=== PATIENT | male | born 1945 | race Caucasian/White ===

== ENCOUNTER 2016-09-02 09:30 | Emergency (ER) | payer MEDICARE ==
[2016-09-02 09:52] VITALS: TEMP 98.4
[2016-09-02] MEDS ORDERED: HYDROcodone/APAP 5-325MG 1 EACH TAB PO STA (10:12)
--- NOTE | 2016-09-02 10:15 | ED ---
General Adult HPI - General Chief complaint: Back Pain/Injury Stated complaint: SLIP AND FALL, BACK INJURY Time Seen by Provider: 09/02/16 10:06 Source: patient, family, RN notes reviewed Mode of arrival: ambulatory Limitations: language barrier - History of Present Illness Initial comments: Patient is 71-year-old male who presents emergency room today with a chief complaint of fall occurred 2 days ago. He does admit to a slip and fall on the ice falling backwards onto his back. Does admit to previous back surgery. States he's felt increased pain to the left side of the lower back with some radiation going down the left leg is worse with certain movements of ambulation. Patient states that he did not hit his head and there is no loss consciousness. He states been using Tylenol 3 at home with some relief the symptoms. He denies any bowel or bladder incontinence retention. Denies any saddle anesthesia. Denies any other concerns or symptoms at this time. Patient denies any recent fever, chills, shortness of breath, chest pain, abdominal pain , nausea or vomiting, dysuria or hematuria, constipation or diarrhea, headaches or visual changes, or any other complaints. - Related Data Home Medications Medication Instructions Recorded Confirmed Clopidogrel [Plavix] 75 mg PO DAILY 09/02/16 09/02/16 Metoprolol Tartrate [Lopressor] 100 mg PO DAILY 09/02/16 09/02/16 traMADol HCL [traMADol HCL ER] 300 mg PO 09/02/16 Previous Rx's Medication Instructions Recorded Hydrocodone/Acetaminophen [[place] 1 each PO Q6HR PRN #20 tab 09/02/16 5-325] Allergies Allergy/AdvReac Type Severity Reaction Status Date / Time Penicillins AdvReac Unknown Verified 09/02/16 09:52 Childhood Review of Systems ROS Statement: Those systems with pertinent positive or pertinent negative responses have been documented in the HPI. ROS Other: All systems not noted in ROS Statement are negative. Past Medical History Past Medical History: Hyperlipidemia, Hypertension History of Any Multi-Drug Resistant Organisms: None Reported Past Surgical History: Back Surgery, Coronary Bypass/CABG Past Psychological History: No Psychological Hx Reported Smoking Status: Former smoker Past Alcohol Use History: None Reported Past Drug Use History: None Reported General Exam - General Exam Comments Initial Comments: General: The patient is awake and alert, in no distress, and does not appear acutely ill. Eye: Pupils are equal, round and reactive to light, extra-ocular movements are intact. No nystagmus. There is normal conjunctiva bilaterally. No signs of icterus. Ears, nose, mouth and throat: There are moist mucous membranes and no oral lesions. Neck: The neck is supple, there is no tenderness or JVD. Cardiovascular: There is a regular rate and rhythm. No murmur, rub or gallop is appreciated. Respiratory: Lungs are clear to auscultation, respirations are non-labored, breath sounds are equal. No wheezes, stridor, rales, or rhonchi. Gastrointestinal: Soft, non-distended, non-tender abdomen without masses or organomegaly noted. There is no rebound or guarding present. No CVA tenderness. Bowel sounds are unremarkable. Musculoskeletal: Patient shows good range of motion. Patient has normal appearance of cervical, thoracic, lumbar spine. No step-offs formers pressure. Old surgical incision over the lumbar. Patient does have mild tenderness at C6-C7. Patient has tenderness at L3 to L5. Increased paravertebral tenderness both on left right side of the lower lumbar spine. Strength 5/5. Sensation intact. Pulses equal bilaterally 2+. Neurological: A&O x 3. CN II-XII intact, There are no obvious motor or sensory deficits. Coordination appears grossly intact. Speech is normal. Skin: Skin is warm and dry and no rashes or lesions are noted. Psychiatric: Cooperative, appropriate mood & affect, normal judgment. Limitations: language barrier Course Vital Signs 09/02/16 09:44 Temperature 98.4 F Pulse Rate 83 Respiratory 18 Rate Blood Pressure 147/78 O2 Sat by Pulse 96 Oximetry Medical Decision Making - Medical Decision Making Patient reexamined at this time shows no signs of distress. Her x-rays reviewed and are unremarkable. Patient advised follow-up with commercial lawn specialist. He is from out of town. Will be given orthopedic grain origination specialist. he'll be continued on [place] for pain. Eyes return if any symptoms increase or worsen or for any other concerns. Disposition Clinical Impression: Acute low back pain, Fall Disposition: HOME SELF-CARE Condition: Good Instructions: Acute Low Back Pain (ED) Additional Instructions: Please follow-up the commercial lawn specialist as discussed over the next week. Please use medication as prescribed for pain. Be aware that it may make you drowsy or cause constipation. Please return to emergency room if any symptoms increase or worsen or for any other concerns. Prescriptions: Hydrocodone/Acetaminophen [[place] 5-325] 1 each PO Q6HR PRN #20 tab PRN Reason: Pain Referrals: Nonstaff,Physician [Primary Care Provider] - 1-2 days Laura Abrams DO [Doctor of Osteopathic Medicine] - 1-2 days Time of Disposition: 10:52
--- NOTE | 2016-09-02 10:36 | XR ---
EXAMINATION TYPE: XR cervical spine comp DATE OF EXAM: 09/02/2016 10:26 AM TECHNIQUE: Frontal, lateral, oblique, and open mouth view of the cervical spine are obtained. HISTORY: fall pain after fall injury 3 days ago COMPARISON: None FINDINGS: The cervical spine is visualized in its entirety from C1 thru the top of T1 level, it is s traightened in alignment without evidence of acute fracture or dislocation. The pre-vertebral soft t issue appears within normal limits. The C1-C2 articulation is within normal limits on the open mouth view. Lateral spurring is present. There is ossific fusion of the C5-C7 vertebra presumed desired product of prior surgery. There is mil d to moderate spurring with mild disc space narrowing C3-C4 and C4-C5 levels. There are uncovertebral facet degenerative changes bilaterally in the upper to mid cervical spine, left slightly more pronou nced than right. Bilateral neural foraminal narrowing is suspected at C3-C4 C4-C5 levels on the obliq ue images. Sternal wires and mediastinal clips from CABG procedure are seen in the overlying soft tis shaan. IMPRESSION: No acute fracture or dislocation is seen in the cervical spine. Straightening of cervica l spine with multilevel degenerative changes as noted above.
--- NOTE | 2016-09-02 10:39 | XR ---
EXAMINATION TYPE: XR lumbar spine 2 or 3V DATE OF EXAM: 09/02/2016 10:26 AM CLINICAL HISTORY: Pain after fall injury 3 days ago. TECHNIQUE: Frontal and lateral images of the lumbar spine are obtained. COMPARISON: CT abdomen and pelvis April 29, 2011. FINDINGS: There are 5 lumbar type vertebral bodies identified. The lumbar spine shows straightened alignment without evidence of acute fracture or dislocation. Vertebral body heights heights are withi n normal limits. There is moderate multilevel spurring and disc space narrowing most pronounced at L3 -L4 level. There are posterior interpedicular rods and screws bilaterally at L4-S1 levels. There are bilateral laminectomy defects and spinous process resection at L4 and L5 vertebral body levels. Vascu lar calcification of overlying abdominal aorta is seen in the overlying soft tissue. Cannot exclude n ew staghorn type calculus centrally in right kidney at L1-L2 disc space level. IMPRESSION: No acute fracture or dislocation is seen in the lumbar spine. Postsurgical and multileve l degenerative changes as well as other findings are seen as detailed above.
[2016-09-02 11:08] VITALS: BP 150/88; PULSE 75; RESP 16
== END 2016-09-02 11:23 | disposition home or self-care (01) ==
LOC: EC 09:30
DX: M54.5 Low back pain (principal); M79.605 Pain in left leg; I10 Essential (primary) hypertension; Z87.891 Personal history of nicotine dependence; Z79.02 Long term (current) use of antithrombotics/antiplatelets; Z79.899 Other long term (current) drug therapy; Z79.891 Long term (current) use of opiate analgesic; Z88.0 Allergy status to penicillin; Z98.61 Coronary angioplasty status; Z98.890 Other specified postprocedural states; W00.0XXA Fall on same level due to ice and snow, initial encounter
CPT/HCPCS: 72050; 72100; 99283